=== PATIENT | female | born 1945 | race African-American/Black ===

== ENCOUNTER 2020-09-01 00:04 | Inpatient (IN) | payer MEDICARE, MEDICAID ==
[2020-08-31 23:18] VITALS: BP 133/72
[~2020-09-01] VITALS: Ht 170.2 cm; Wt 79.9 kg
[2020-09-01] VITALS: BP 133/72
[2020-09-01] MEDS ORDERED: REMDESIVIR PER PHARMACY 0 ML IV SCH ×2 (00:45→09:15)
[2020-09-01] MEDS: SODIUM CHLORIDE 0.9% 1,000 ML IV SCH ×2 (02:27→14:15)
[2020-09-01] MEDS: cefTRIAXone 1GM/50ML D5W 50 ML IV SCH ×3 (02:27→21:23)
[2020-09-01] MEDS: AZITHROMYCIN 500MG/ 250ML 250 ML IV SCH (03:30)
[2020-09-01] MEDS ORDERED: HYDROcodone-ACET 5/325MG TAB PO PRN (05:30)
[2020-09-01 08:00] VITALS: BP 139/66
[2020-09-01 08:02] LABS: Potassium 4.3 mmol/L (3.5-5.1)
[2020-09-01 08:03] LABS: Basophils # (auto) 0 10 ^3/uL (0-0.2); Eosinophils # (auto) 0 10 ^3/uL (0-0.8); Hemoglobin 10.9 g/dL (12.2-16.2); Lymphocytes # (auto) 0.8 10 ^3/uL (0.4-5.4); Lymphocytes % (auto) 9.6 % (10.0-50.0); Mean Corpuscular Hemoglobin 28.6 pg (28.0-32.0); Mean Corpuscular Hgb Conc. 33.1 g/dL (32.0-36.0); Mean Corpuscular Volume 86.5 fL (80.0-100.0); Monocytes # (auto) 0.8 10 ^3/uL (0-1.3); Monocytes % (auto) 9.9 % (0.0-12.0); Neutrophils # (auto) 6.6 10 ^3/uL (1.6-8.6); Neutrophils % (auto) 80.5 % (37.0-80.0); Nucleated Red Blood Cells % 0.2 %; Platelet Count (auto) 351 10^3/uL (140-450); Red Blood Cells 3.81 10^6/uL (4.0-5.20); Red Cell Distribution Width 14.8 % (11.8-14.3); White Blood Cell 8.2 10^3/uL (4.4-10.8)
[2020-09-01 08:18] LABS: BUN/Creatinine Ratio 21.1; Bilirubin, Total 0.6 mg/dL (0.2-1.0); Calcium 7.8 mg/dL (8.5-10.1)
[2020-09-01] MEDS ORDERED: ASPirin 325 MG TAB PO ONE (09:15)
[2020-09-01] MEDS: ZINC SULFATE 220mg CAP or TAB PO SCH (10:00)
[2020-09-01] MEDS: CHOLECALCIFEROL (VITD3) 2,000 UNIT CAP/TAB PO SCH (10:00)
[2020-09-01] MEDS: ASCORBIC ACID 500 MG TAB PO SCH (10:00)
[2020-09-01] MEDS: PANTOPRAZOLE 40 MG/10 ML VIAL INJ IV SCH (10:00)
[2020-09-01] MEDS: ENOXAPARIN SOD 80 MG/0.8ML SYRINGE SC SCH ×2 (10:44→21:23)
[2020-09-01 10:59] LABS: Basophils # (auto) 0 10 ^3/uL (0-0.2); Basophils % (auto) 0.2 % (0.0-2.0); Eosinophils # (auto) 0 10 ^3/uL (0-0.8); Hemoglobin 11.1 g/dL (12.2-16.2); Lymphocytes # (auto) 0.9 10 ^3/uL (0.4-5.4); Lymphocytes % (auto) 9.7 % (10.0-50.0); Mean Corpuscular Hemoglobin 28.1 pg (28.0-32.0); Mean Corpuscular Hgb Conc. 32.5 g/dL (32.0-36.0); Mean Corpuscular Volume 86.4 fL (80.0-100.0); Monocytes % (auto) 11.1 % (0.0-12.0); Nucleated Red Blood Cells % 0.4 %; Platelet Count (auto) 370 10^3/uL (140-450); Red Blood Cells 3.94 10^6/uL (4.0-5.20); Red Cell Distribution Width 14.6 % (11.8-14.3); White Blood Cell 8.8 10^3/uL (4.4-10.8)
[2020-09-01 11:24] LABS: Albumin 2.1 g/dL (3.4-5.0); Calcium 7.9 mg/dL (8.5-10.1); Potassium 4.2 mmol/L (3.5-5.1)
[2020-09-01 11:32] LABS: Bilirubin, Total 0.6 mg/dL (0.2-1.0); CRP High Sensitivity 7.43 mg/dL (< 0.3); Total Protein 7.4 g/dL (6.4-8.2)
[2020-09-01] MEDS ORDERED: REMDESIVIR 200 MG in NS 210ml LOADING DOSE ADULT IV ONE (15:00)
[2020-09-01 16:00] VITALS: BP 149/69
[2020-09-01] MEDS ORDERED: HYDR-531 PO (18:00)
[2020-09-01] MEDS ORDERED: FURO20TA3 PO (18:00)
[2020-09-01] MEDS ORDERED: OMEP-260 PO (18:00)
[2020-09-01] MEDS ORDERED: GLYB2.5T8 PO (18:00)
[2020-09-01] MEDS ORDERED: LEVO112T4 PO (18:00)
[2020-09-01] MEDS ORDERED: DOCU250C4 PO (18:00)
[2020-09-01] MEDS ORDERED: ASPI81CH74 PO (18:00)
[2020-09-01] MEDS ORDERED: ATOR20TA50 PO (18:00)
[2020-09-01] MEDS ORDERED: AMLO-489 PO (18:00)
[2020-09-01] MEDS ORDERED: OXYB5TAB61 PO (18:00)
[2020-09-01] MEDS ORDERED: POTA8TAB2 PO (18:00)
[2020-09-01] MEDS ORDERED: BUSP5TAB78 PO (18:00)
[2020-09-01] MEDS: ATORVASTATIN 20 MG TAB PO SCH ×2 (21:23→22:00)
[2020-09-02] VITALS: BP 160/78
[2020-09-02] MEDS: SODIUM CHLORIDE 0.9% 1,000 ML IV SCH (04:33)
[2020-09-02 07:58] VITALS: BP 160/78
[2020-09-02 08:45] LABS: Basophils # (auto) 0 10 ^3/uL (0-0.2); Eosinophils # (auto) 0 10 ^3/uL (0-0.8); Lymphocytes # (auto) 0.9 10 ^3/uL (0.4-5.4); Monocytes # (auto) 0.8 10 ^3/uL (0-1.3); Red Cell Distribution Width 14.5 % (11.8-14.3)
[2020-09-02 08:48] LABS: Basophils % (auto) 0.1 % (0.0-2.0); Hematocrit 35.4 % (36.0-46.0); Hemoglobin 11.6 g/dL (12.2-16.2); Lymphocytes % (auto) 9.9 % (10.0-50.0); Mean Corpuscular Hemoglobin 28.2 pg (28.0-32.0); Mean Corpuscular Hgb Conc. 32.9 g/dL (32.0-36.0); Mean Corpuscular Volume 85.8 fL (80.0-100.0); Monocytes % (auto) 8.8 % (0.0-12.0); Neutrophils # (auto) 7.3 10 ^3/uL (1.6-8.6); Neutrophils % (auto) 81.2 % (37.0-80.0); Nucleated Red Blood Cells % 0.3 %; Red Blood Cells 4.13 10^6/uL (4.0-5.20); White Blood Cell 8.9 10^3/uL (4.4-10.8)
[2020-09-02 09:03] LABS: Albumin 2.1 g/dL (3.4-5.0); Calcium 8.2 mg/dL (8.5-10.1); Magnesium 2.5 mg/dL (1.6-2.6); Potassium 3.6 mmol/L (3.5-5.1)
[2020-09-02 09:13] LABS: BUN/Creatinine Ratio 20.7; Bilirubin, Total 0.6 mg/dL (0.2-1.0); CRP High Sensitivity 4.52 mg/dL (< 0.3); Phosphorus 1.3 mg/dL (2.5-4.90); Total Protein 7.7 g/dL (6.4-8.2)
[2020-09-02 09:50] LABS: Platelet Count (auto) 454 10^3/uL (140-450)
[2020-09-02] MEDS: PANTOPRAZOLE 40 MG/10 ML VIAL INJ IV SCH (11:04)
[2020-09-02] MEDS: AZITHROMYCIN 500MG/ 250ML 250 ML IV SCH (11:05)
[2020-09-02] MEDS: cefTRIAXone 1GM/50ML D5W 50 ML IV SCH ×2 (11:05→22:07)
[2020-09-02] MEDS: DexAMETHasone 4 MG TAB PO SCH (11:06)
[2020-09-02] MEDS: ASPirin 81 mg TAB PO SCH (11:06)
[2020-09-02] MEDS: ZINC SULFATE 220mg CAP or TAB PO SCH (11:06)
[2020-09-02] MEDS: ASCORBIC ACID 500 MG TAB PO SCH (11:06)
[2020-09-02] MEDS: ENOXAPARIN SOD 80 MG/0.8ML SYRINGE SC SCH ×2 (11:07→22:08)
[2020-09-02] MEDS: CHOLECALCIFEROL (VITD3) 2,000 UNIT CAP/TAB PO SCH (11:07)
[2020-09-02] MEDS: REMDESIVIR 100mg 100 MG in SODIUM CHL 0.9% 230 ML IV SCH (15:56)
[2020-09-02 16:04] VITALS: BP 160/77
[2020-09-02] MEDS: ATORVASTATIN 20 MG TAB PO SCH ×2 (22:00→22:07)
[2020-09-03] VITALS: BP 164/89
[2020-09-03] MEDS: SODIUM CHLORIDE 0.9% 1,000 ML IV SCH ×3 (06:49→20:10)
[2020-09-03 08:00] VITALS: BP 155/82
[2020-09-03 08:33] LABS: Basophils # (auto) 0 10 ^3/uL (0-0.2); Basophils % (auto) 0.1 % (0.0-2.0); Eosinophils # (auto) 0 10 ^3/uL (0-0.8); Hematocrit 33.8 % (36.0-46.0); Hemoglobin 11.1 g/dL (12.2-16.2); Lymphocytes % (auto) 10.1 % (10.0-50.0); Mean Corpuscular Hemoglobin 28.4 pg (28.0-32.0); Mean Corpuscular Hgb Conc. 32.9 g/dL (32.0-36.0); Mean Corpuscular Volume 86.4 fL (80.0-100.0); Monocytes # (auto) 0.7 10 ^3/uL (0-1.3); Monocytes % (auto) 7.7 % (0.0-12.0); Neutrophils % (auto) 82.1 % (37.0-80.0); Nucleated Red Blood Cells % 0.2 %; Platelet Count (auto) 416 10^3/uL (140-450); Red Blood Cells 3.92 10^6/uL (4.0-5.20); Red Cell Distribution Width 14.5 % (11.8-14.3); White Blood Cell 9.7 10^3/uL (4.4-10.8)
[2020-09-03 08:59] LABS: Potassium 3.4 mmol/L (3.5-5.1)
[2020-09-03 09:17] LABS: Albumin 1.9 g/dL (3.4-5.0); BUN/Creatinine Ratio 15.9; Bilirubin, Total 0.7 mg/dL (0.2-1.0); CRP High Sensitivity 8.12 mg/dL (< 0.3); Calcium 7.9 mg/dL (8.5-10.1); Magnesium 2.5 mg/dL (1.6-2.6); Total Protein 7.3 g/dL (6.4-8.2)
[2020-09-03] MEDS: PANTOPRAZOLE 40 MG/10 ML VIAL INJ IV SCH (15:57)
[2020-09-03] MEDS: cefTRIAXone 1GM/50ML D5W 50 ML IV SCH ×2 (15:57→22:12)
[2020-09-03] MEDS: AZITHROMYCIN 500MG/ 250ML 250 ML IV SCH (15:58)
[2020-09-03] MEDS: ASPirin 81 mg TAB PO SCH (15:58)
[2020-09-03] MEDS: DexAMETHasone 4 MG TAB PO SCH (15:58)
[2020-09-03] MEDS: ZINC SULFATE 220mg CAP or TAB PO SCH (15:58)
[2020-09-03] MEDS: ASCORBIC ACID 500 MG TAB PO SCH (15:59)
[2020-09-03] MEDS: amLODIPine BESYLATE 5 MG TAB PO SCH (15:59)
[2020-09-03 16:00] VITALS: BP 147/84
[2020-09-03] MEDS: REMDESIVIR 100mg 100 MG in SODIUM CHL 0.9% 230 ML IV SCH (16:00)
[2020-09-03] MEDS: ENOXAPARIN SOD 80 MG/0.8ML SYRINGE SC SCH ×2 (16:00→22:13)
[2020-09-03] MEDS: CHOLECALCIFEROL (VITD3) 2,000 UNIT CAP/TAB PO SCH (16:00)
[2020-09-03] MEDS: ATORVASTATIN 20 MG TAB PO SCH ×2 (22:12→22:13)
[2020-09-04 00:22] VITALS: BP 155/84
[2020-09-04 06:43] LABS: Basophils # (auto) 0 10 ^3/uL (0-0.2); Basophils % (auto) 0.1 % (0.0-2.0); Eosinophils # (auto) 0 10 ^3/uL (0-0.8); Hematocrit 33.8 % (36.0-46.0); Lymphocytes # (auto) 0.8 10 ^3/uL (0.4-5.4); Lymphocytes % (auto) 8.2 % (10.0-50.0); Mean Corpuscular Hgb Conc. 32.6 g/dL (32.0-36.0); Mean Corpuscular Volume 85.9 fL (80.0-100.0); Monocytes # (auto) 0.7 10 ^3/uL (0-1.3); Monocytes % (auto) 7.1 % (0.0-12.0); Neutrophils # (auto) 8.4 10 ^3/uL (1.6-8.6); Neutrophils % (auto) 84.6 % (37.0-80.0); Nucleated Red Blood Cells % 0.3 %; Platelet Count (auto) 446 10^3/uL (140-450); Red Blood Cells 3.93 10^6/uL (4.0-5.20); Red Cell Distribution Width 14.3 % (11.8-14.3); White Blood Cell 9.9 10^3/uL (4.4-10.8)
[2020-09-04 07:02] LABS: Albumin 1.7 g/dL (3.4-5.0); Calcium 7.7 mg/dL (8.5-10.1); Magnesium 2.7 mg/dL (1.6-2.6); Potassium 3.8 mmol/L (3.5-5.1)
[2020-09-04 07:10] LABS: BUN/Creatinine Ratio 21.1; Bilirubin, Total 0.5 mg/dL (0.2-1.0); CRP High Sensitivity 8.48 mg/dL (< 0.3); Total Protein 7.3 g/dL (6.4-8.2)
[2020-09-04 08:00] VITALS: BP 154/81
[2020-09-04] MEDS: cefTRIAXone 1GM/50ML D5W 50 ML IV SCH ×2 (10:28→21:41)
[2020-09-04] MEDS: ASPirin 81 mg TAB PO SCH (10:28)
[2020-09-04] MEDS: amLODIPine BESYLATE 5 MG TAB PO SCH (10:29)
[2020-09-04] MEDS: ZINC SULFATE 220mg CAP or TAB PO SCH (10:29)
[2020-09-04] MEDS: ENOXAPARIN SOD 80 MG/0.8ML SYRINGE SC SCH ×2 (10:30→21:42)
[2020-09-04] MEDS: ASCORBIC ACID 500 MG TAB PO SCH (10:30)
[2020-09-04] MEDS: CHOLECALCIFEROL (VITD3) 2,000 UNIT CAP/TAB PO SCH (10:30)
[2020-09-04] MEDS: DexAMETHasone 4 MG TAB PO SCH (10:31)
[2020-09-04] MEDS: AZITHROMYCIN 500MG/ 250ML 250 ML IV SCH (11:36)
[2020-09-04 15:05] LABS: CRP High Sensitivity 6.94 mg/dL (< 0.3)
[2020-09-04] MEDS: PANTOPRAZOLE 40 MG TAB PO SCH (15:45)
[2020-09-04] MEDS: REMDESIVIR 100mg 100 MG in SODIUM CHL 0.9% 230 ML IV SCH (15:46)
[2020-09-04 16:00] VITALS: BP 154/79
[2020-09-04] MEDS: ATORVASTATIN 20 MG TAB PO SCH ×2 (21:41)
[2020-09-05] VITALS: BP_SYST 133; BP_SYST 153; BP_DIAS 82
[2020-09-05 06:42] LABS: Basophils # (auto) 0 10 ^3/uL (0-0.2); Basophils % (auto) 0.1 % (0.0-2.0); Eosinophils # (auto) 0 10 ^3/uL (0-0.8); Hematocrit 34.1 % (36.0-46.0); Hemoglobin 11.1 g/dL (12.2-16.2); Lymphocytes # (auto) 0.8 10 ^3/uL (0.4-5.4); Lymphocytes % (auto) 6.6 % (10.0-50.0); Mean Corpuscular Hemoglobin 28.1 pg (28.0-32.0); Mean Corpuscular Hgb Conc. 32.4 g/dL (32.0-36.0); Mean Corpuscular Volume 86.5 fL (80.0-100.0); Monocytes # (auto) 0.9 10 ^3/uL (0-1.3); Monocytes % (auto) 7.4 % (0.0-12.0); Neutrophils # (auto) 10.4 10 ^3/uL (1.6-8.6); Neutrophils % (auto) 85.9 % (37.0-80.0); Nucleated Red Blood Cells % 0.2 %; Platelet Count (auto) 439 10^3/uL (140-450); Red Blood Cells 3.94 10^6/uL (4.0-5.20); Red Cell Distribution Width 14.6 % (11.8-14.3); White Blood Cell 12.1 10^3/uL (4.4-10.8)
[2020-09-05 07:15] LABS: Albumin 1.8 g/dL (3.4-5.0); Calcium 8.1 mg/dL (8.5-10.1); Magnesium 2.7 mg/dL (1.6-2.6)
[2020-09-05 07:22] LABS: Bilirubin, Total 0.3 mg/dL (0.2-1.0); Total Protein 7.3 g/dL (6.4-8.2)
[2020-09-05 07:25] LABS: BUN/Creatinine Ratio 24.8; CRP High Sensitivity 4.57 mg/dL (< 0.3)
[2020-09-05 07:52] VITALS: BP 154/77
[2020-09-05] MEDS: cefTRIAXone 1GM/50ML D5W 50 ML IV SCH ×2 (11:13→21:17)
[2020-09-05] MEDS: ZINC SULFATE 220mg CAP or TAB PO SCH (11:14)
[2020-09-05] MEDS: ASPirin 81 mg TAB PO SCH (11:14)
[2020-09-05] MEDS: ASCORBIC ACID 500 MG TAB PO SCH (11:15)
[2020-09-05] MEDS: PANTOPRAZOLE 40 MG TAB PO SCH (11:15)
[2020-09-05] MEDS: amLODIPine BESYLATE 5 MG TAB PO SCH (11:15)
[2020-09-05] MEDS: DexAMETHasone 4 MG TAB PO SCH (11:16)
[2020-09-05] MEDS: CHOLECALCIFEROL (VITD3) 2,000 UNIT CAP/TAB PO SCH (11:16)
[2020-09-05] MEDS: ENOXAPARIN SOD 80 MG/0.8ML SYRINGE SC SCH ×2 (11:16→21:18)
[2020-09-05] MEDS: AZITHROMYCIN 500MG/ 250ML 250 ML IV SCH (14:02)
[2020-09-05 16:00] VITALS: BP 116/81
[2020-09-05] MEDS ORDERED: DEXTROSE (50%) 50ML SYRG IV PRN (16:15)
[2020-09-05] MEDS: REMDESIVIR 100mg 100 MG in SODIUM CHL 0.9% 230 ML IV SCH (17:41)
[2020-09-05] MEDS: InsuLIN REG 1unit/0.01ml Soln (100units/ml) SC SCH ×2 (17:42→20:30)
[2020-09-05] MEDS: ACCU-CHEK COMFORT CURVE STRIP VI SCH ×2 (17:42→21:18)
[2020-09-05] MEDS: Glucerna Carbsteady SHAKE Vanilla 8oz PO SCH (17:43)
[2020-09-05 17:50] VITALS: BP 116/81
[2020-09-05] MEDS: ATORVASTATIN 20 MG TAB PO SCH (21:18)
[2020-09-06] VITALS: BP 148/75
[2020-09-06] MEDS: ATORVASTATIN 20 MG TAB PO SCH ×2 (03:40→22:30)
[2020-09-06 06:10] LABS: Basophils # (auto) 0 10 ^3/uL (0-0.2); Basophils % (auto) 0.1 % (0.0-2.0); Eosinophils # (auto) 0 10 ^3/uL (0-0.8); Hematocrit 34.8 % (36.0-46.0); Hemoglobin 11.4 g/dL (12.2-16.2); Lymphocytes % (auto) 7.8 % (10.0-50.0); Mean Corpuscular Hemoglobin 28.5 pg (28.0-32.0); Mean Corpuscular Hgb Conc. 32.9 g/dL (32.0-36.0); Mean Corpuscular Volume 86.6 fL (80.0-100.0); Monocytes # (auto) 0.8 10 ^3/uL (0-1.3); Monocytes % (auto) 6.2 % (0.0-12.0); Neutrophils # (auto) 10.9 10 ^3/uL (1.6-8.6); Neutrophils % (auto) 85.9 % (37.0-80.0); Nucleated Red Blood Cells % 0.1 %; Platelet Count (auto) 438 10^3/uL (140-450); Red Blood Cells 4.01 10^6/uL (4.0-5.20); Red Cell Distribution Width 14.6 % (11.8-14.3); White Blood Cell 12.7 10^3/uL (4.4-10.8)
[2020-09-06] MEDS: InsuLIN REG 1unit/0.01ml Soln (100units/ml) SC SCH ×4 (06:16→22:39)
[2020-09-06 06:33] LABS: Albumin 1.9 g/dL (3.4-5.0); BUN/Creatinine Ratio 24.1; Calcium 8.5 mg/dL (8.5-10.1); Potassium 3.8 mmol/L (3.5-5.1)
[2020-09-06 06:35] LABS: Bilirubin, Total 0.3 mg/dL (0.2-1.0); Total Protein 7.2 g/dL (6.4-8.2)
[2020-09-06] MEDS: ACCU-CHEK COMFORT CURVE STRIP VI SCH ×4 (07:27→22:00)
[2020-09-06 08:00] VITALS: BP 160/83
[2020-09-06] MEDS: Glucerna Carbsteady SHAKE Vanilla 8oz PO SCH ×3 (08:00→18:30)
[2020-09-06 08:25] LABS: Folate (Folic Acid) 16.07 ng/mL (5.38-24)
[2020-09-06] MEDS: cefTRIAXone 1GM/50ML D5W 50 ML IV SCH ×2 (10:50→22:30)
[2020-09-06] MEDS: CHOLECALCIFEROL (VITD3) 2,000 UNIT CAP/TAB PO SCH (10:50)
[2020-09-06] MEDS: amLODIPine BESYLATE 5 MG TAB PO SCH (10:50)
[2020-09-06] MEDS: ASCORBIC ACID 500 MG TAB PO SCH (10:50)
[2020-09-06] MEDS: ENOXAPARIN SOD 80 MG/0.8ML SYRINGE SC SCH ×2 (10:50→22:29)
[2020-09-06] MEDS: PANTOPRAZOLE 40 MG TAB PO SCH (10:50)
[2020-09-06] MEDS: ZINC SULFATE 220mg CAP or TAB PO SCH (10:50)
[2020-09-06] MEDS: DexAMETHasone 4 MG TAB PO SCH (10:51)
[2020-09-06] MEDS: ASPirin 81 mg TAB PO SCH (10:51)
[2020-09-06] MEDS: AZITHROMYCIN 500MG/ 250ML 250 ML IV SCH (11:30)
[2020-09-06 16:00] VITALS: BP 148/75
[2020-09-06 17:22] VITALS: BP 155/86
[2020-09-06 17:37] VITALS: BP 136/71
[2020-09-07] VITALS: BP 134/99
[2020-09-07] MEDS ORDERED: SODIUM CHLORIDE 0.9% 1,000 ML IV SCH (04:15)
[2020-09-07] MEDS ORDERED: SODIUM CHLORIDE 0.9% 500 ML IV ONE (04:15)
[2020-09-07 05:45] LABS: Basophils # (auto) 0 10 ^3/uL (0-0.2); Eosinophils # (auto) 0 10 ^3/uL (0-0.8); Eosinophils % (auto) 0.2 % (0.0-7.0); Hematocrit 34.2 % (36.0-46.0); Hemoglobin 11.1 g/dL (12.2-16.2); Lymphocytes # (auto) 1.2 10 ^3/uL (0.4-5.4); Mean Corpuscular Hemoglobin 27.9 pg (28.0-32.0); Mean Corpuscular Hgb Conc. 32.5 g/dL (32.0-36.0); Mean Corpuscular Volume 85.8 fL (80.0-100.0); Monocytes # (auto) 0.8 10 ^3/uL (0-1.3); Monocytes % (auto) 5.7 % (0.0-12.0); Neutrophils # (auto) 11.2 10 ^3/uL (1.6-8.6); Neutrophils % (auto) 85.1 % (37.0-80.0); Nucleated Red Blood Cells % 0.1 %; Platelet Count (auto) 420 10^3/uL (140-450); Red Blood Cells 3.98 10^6/uL (4.0-5.20); Red Cell Distribution Width 14.4 % (11.8-14.3); White Blood Cell 13.2 10^3/uL (4.4-10.8)
[2020-09-07 06:04] LABS: Potassium 3.8 mmol/L (3.5-5.1)
[2020-09-07 06:25] LABS: Albumin 1.9 g/dL (3.4-5.0); BUN/Creatinine Ratio 21.5; Bilirubin, Total 0.5 mg/dL (0.2-1.0); CRP High Sensitivity 3.03 mg/dL (< 0.3); Magnesium 2.3 mg/dL (1.6-2.6); Total Protein 7.5 g/dL (6.4-8.2)
[2020-09-07] MEDS: ACCU-CHEK COMFORT CURVE STRIP VI SCH ×4 (06:29→22:46)
[2020-09-07] MEDS: InsuLIN REG 1unit/0.01ml Soln (100units/ml) SC SCH ×4 (06:30→23:28)
[2020-09-07 07:21] LABS: Urine Bacteria NONE SEEN /hpf (None Seen); Urine Blood Negative /uL (Negative); Urine Budding Yeast MANY /hpf (None Seen); Urine WBC 20 /hpf (0 - 5)
[2020-09-07 08:00] VITALS: BP 131/84
[2020-09-07] MEDS: Glucerna Carbsteady SHAKE Vanilla 8oz PO SCH ×3 (08:09→17:50)
[2020-09-07] MEDS: ZINC SULFATE 220mg CAP or TAB PO SCH (10:47)
[2020-09-07] MEDS: cefTRIAXone 1GM/50ML D5W 50 ML IV SCH ×2 (10:47→22:38)
[2020-09-07] MEDS: DexAMETHasone 4 MG TAB PO SCH (10:47)
[2020-09-07] MEDS: PANTOPRAZOLE 40 MG TAB PO SCH (10:48)
[2020-09-07] MEDS: ASCORBIC ACID 500 MG TAB PO SCH (10:48)
[2020-09-07] MEDS: amLODIPine BESYLATE 5 MG TAB PO SCH (10:48)
[2020-09-07] MEDS: CHOLECALCIFEROL (VITD3) 2,000 UNIT CAP/TAB PO SCH (10:49)
[2020-09-07] MEDS: AZITHROMYCIN 500MG/ 250ML 250 ML IV SCH (11:00)
[2020-09-07] MEDS: ENOXAPARIN SOD 80 MG/0.8ML SYRINGE SC SCH ×2 (11:30→22:38)
[2020-09-07 16:00] VITALS: BP 151/87
[2020-09-07 17:04] LABS: INR 1.18 (0.9-1.15)
[2020-09-07] MEDS: ATORVASTATIN 20 MG TAB PO SCH (22:38)
[2020-09-08] VITALS: BP 148/82
[2020-09-08 00:18] LABS: INR 1.18 (0.9-1.15); Partial Thromboplastin Time 34.6 sec (23.0-31.2)
[2020-09-08] MEDS: InsuLIN REG 1unit/0.01ml Soln (100units/ml) SC SCH ×4 (06:26→21:13)
[2020-09-08] MEDS: ACCU-CHEK COMFORT CURVE STRIP VI SCH ×4 (06:26→21:07)
[2020-09-08] MEDS ORDERED: LIDOCAINE 2%HCL (LOCAL ANESTH.) INJ 20ML MDV ONE (07:23)
[2020-09-08] MEDS ORDERED: HEPARIN IN NS 1000Units/500mL 0 ML ONE (07:23)
[2020-09-08] MEDS ORDERED: IODIXANOL 320MG/ML 100ML BTL IV ONE (07:23)
[2020-09-08 07:32] LABS: Basophils # (auto) 0 10 ^3/uL (0-0.2); Basophils % (auto) 0.2 % (0.0-2.0); Eosinophils # (auto) 0 10 ^3/uL (0-0.8); Eosinophils % (auto) 0.2 % (0.0-7.0); Hematocrit 35.6 % (36.0-46.0); Hemoglobin 11.6 g/dL (12.2-16.2); Lymphocytes # (auto) 1.2 10 ^3/uL (0.4-5.4); Lymphocytes % (auto) 8.7 % (10.0-50.0); Mean Corpuscular Hgb Conc. 32.8 g/dL (32.0-36.0); Mean Corpuscular Volume 85.4 fL (80.0-100.0); Monocytes # (auto) 0.7 10 ^3/uL (0-1.3); Monocytes % (auto) 5.3 % (0.0-12.0); Neutrophils # (auto) 11.7 10 ^3/uL (1.6-8.6); Neutrophils % (auto) 85.6 % (37.0-80.0); Platelet Count (auto) 417 10^3/uL (140-450); Red Blood Cells 4.17 10^6/uL (4.0-5.20); Red Cell Distribution Width 14.4 % (11.8-14.3); White Blood Cell 13.7 10^3/uL (4.4-10.8)
[2020-09-08 07:51] LABS: Potassium 3.7 mmol/L (3.5-5.1)
[2020-09-08 08:00] VITALS: BP 148/68
[2020-09-08] MEDS: Glucerna Carbsteady SHAKE Vanilla 8oz PO SCH ×3 (08:00→18:19)
[2020-09-08 08:03] LABS: Albumin 1.9 g/dL (3.4-5.0); BUN/Creatinine Ratio 21.8; Bilirubin, Total 0.6 mg/dL (0.2-1.0); CRP High Sensitivity 5.89 mg/dL (< 0.3); Calcium 8.5 mg/dL (8.5-10.1); Magnesium 2.5 mg/dL (1.6-2.6); Total Protein 7.8 g/dL (6.4-8.2)
[2020-09-08] MEDS ORDERED: NITROGLYCERIN 0.4 MG SL TAB SL PRN (10:30)
[2020-09-08] MEDS ORDERED: MORPHINE SULF INJ 2 MG/ML SYRINGE 1ML IV PRN (10:30)
[2020-09-08] MEDS: ASCORBIC ACID 500 MG TAB PO SCH (10:38)
[2020-09-08] MEDS: cefTRIAXone 1GM/50ML D5W 50 ML IV SCH ×2 (10:38→21:28)
[2020-09-08] MEDS: PANTOPRAZOLE 40 MG TAB PO SCH (10:38)
[2020-09-08] MEDS: ZINC SULFATE 220mg CAP or TAB PO SCH (10:38)
[2020-09-08] MEDS: DexAMETHasone 4 MG TAB PO SCH (10:39)
[2020-09-08] MEDS: CHOLECALCIFEROL (VITD3) 2,000 UNIT CAP/TAB PO SCH (10:39)
[2020-09-08] MEDS: amLODIPine BESYLATE 5 MG TAB PO SCH (10:40)
[2020-09-08] MEDS: AZITHROMYCIN 500MG/ 250ML 250 ML IV SCH (11:00)
[2020-09-08] MEDS: ENOXAPARIN SOD 80 MG/0.8ML SYRINGE SC SCH ×2 (11:24→21:07)
[2020-09-08] MEDS: SODIUM CHLOR 0.9% PF (SALINE LOCK) 10ML VIAL/SYR IV SCH ×2 (14:00→21:29)
[2020-09-08] MEDS ORDERED: FUROSEMIDE 40 MG/4 ML VIAL IV ONE (16:00)
[2020-09-08 16:11] VITALS: BP 138/83
[2020-09-08] MEDS: ATORVASTATIN 20 MG TAB PO SCH (21:28)
[2020-09-09] VITALS: BP 134/71
[2020-09-09 02:11] VITALS: BP 134/71
[2020-09-09 02:15] VITALS: BP 134/71
[2020-09-09] MEDS: SODIUM CHLOR 0.9% PF (SALINE LOCK) 10ML VIAL/SYR IV SCH ×3 (05:14→20:57)
[2020-09-09 06:03] LABS: Basophils # (auto) 0 10 ^3/uL (0-0.2); Basophils % (auto) 0.1 % (0.0-2.0); Eosinophils # (auto) 0 10 ^3/uL (0-0.8); Hematocrit 36.4 % (36.0-46.0); Hemoglobin 11.6 g/dL (12.2-16.2); Lymphocytes # (auto) 0.9 10 ^3/uL (0.4-5.4); Lymphocytes % (auto) 6.9 % (10.0-50.0); Mean Corpuscular Hemoglobin 27.4 pg (28.0-32.0); Mean Corpuscular Hgb Conc. 31.8 g/dL (32.0-36.0); Mean Corpuscular Volume 86.2 fL (80.0-100.0); Monocytes # (auto) 0.6 10 ^3/uL (0-1.3); Monocytes % (auto) 4.9 % (0.0-12.0); Neutrophils # (auto) 11.7 10 ^3/uL (1.6-8.6); Neutrophils % (auto) 88.1 % (37.0-80.0); Nucleated Red Blood Cells % 0.1 %; Platelet Count (auto) 389 10^3/uL (140-450); Red Blood Cells 4.23 10^6/uL (4.0-5.20); Red Cell Distribution Width 14.5 % (11.8-14.3); White Blood Cell 13.2 10^3/uL (4.4-10.8)
[2020-09-09] MEDS: ACCU-CHEK COMFORT CURVE STRIP VI SCH ×4 (06:18→20:51)
[2020-09-09] MEDS: InsuLIN REG 1unit/0.01ml Soln (100units/ml) SC SCH ×4 (06:18→21:09)
[2020-09-09 06:33] LABS: Albumin 1.8 g/dL (3.4-5.0); Calcium 8.2 mg/dL (8.5-10.1); Magnesium 2.6 mg/dL (1.6-2.6); Potassium 4.2 mmol/L (3.5-5.1)
[2020-09-09 06:45] LABS: BUN/Creatinine Ratio 23.7; Bilirubin, Total 0.4 mg/dL (0.2-1.0); CRP High Sensitivity 7.69 mg/dL (< 0.3); Total Protein 7.5 g/dL (6.4-8.2)
[2020-09-09 08:00] VITALS: BP 139/77
[2020-09-09] MEDS: Glucerna Carbsteady SHAKE Vanilla 8oz PO SCH ×3 (08:00→18:00)
[2020-09-09] MEDS: cefTRIAXone 1GM/50ML D5W 50 ML IV SCH ×2 (10:53→20:57)
[2020-09-09] MEDS: ENOXAPARIN SOD 80 MG/0.8ML SYRINGE SC SCH ×2 (10:54→20:57)
[2020-09-09] MEDS: amLODIPine BESYLATE 5 MG TAB PO SCH (11:09)
[2020-09-09] MEDS: ZINC SULFATE 220mg CAP or TAB PO SCH (11:09)
[2020-09-09] MEDS: DexAMETHasone 4 MG TAB PO SCH (11:09)
[2020-09-09] MEDS: PANTOPRAZOLE 40 MG TAB PO SCH (11:09)
[2020-09-09] MEDS: CHOLECALCIFEROL (VITD3) 2,000 UNIT CAP/TAB PO SCH (11:10)
[2020-09-09] MEDS: ASCORBIC ACID 500 MG TAB PO SCH (11:10)
[2020-09-09] MEDS: AZITHROMYCIN 500MG/ 250ML 250 ML IV SCH (13:00)
[2020-09-09 16:00] VITALS: BP 108/64
[2020-09-09] MEDS: MORPHINE SULF INJ 2 MG/ML SYRINGE 1ML IV PRN (17:37)
[2020-09-09] MEDS: ATORVASTATIN 20 MG TAB PO SCH (20:57)
[2020-09-10] VITALS: BP 149/67
[2020-09-10] MEDS: SODIUM CHLOR 0.9% PF (SALINE LOCK) 10ML VIAL/SYR IV SCH ×3 (06:40→22:06)
[2020-09-10] MEDS: ACCU-CHEK COMFORT CURVE STRIP VI SCH ×4 (06:42→23:49)
[2020-09-10] MEDS: InsuLIN REG 1unit/0.01ml Soln (100units/ml) SC SCH ×3 (06:42→23:51)
[2020-09-10 07:51] VITALS: BP 126/70
[2020-09-10] MEDS: Glucerna Carbsteady SHAKE Vanilla 8oz PO SCH ×3 (08:00→18:03)
[2020-09-10 08:15] VITALS: BP 126/70
[2020-09-10] MEDS: DexAMETHasone 4 MG TAB PO SCH (10:00)
[2020-09-10] MEDS: ZINC SULFATE 220mg CAP or TAB PO SCH (10:00)
[2020-09-10] MEDS: ASCORBIC ACID 500 MG TAB PO SCH (10:00)
[2020-09-10] MEDS: PANTOPRAZOLE 40 MG TAB PO SCH (10:00)
[2020-09-10] MEDS: CHOLECALCIFEROL (VITD3) 2,000 UNIT CAP/TAB PO SCH (10:00)
[2020-09-10] MEDS: cefTRIAXone 1GM/50ML D5W 50 ML IV SCH ×2 (10:29→22:06)
[2020-09-10] MEDS: AZITHROMYCIN 500MG/ 250ML 250 ML IV SCH (10:29)
[2020-09-10] MEDS: ENOXAPARIN SOD 80 MG/0.8ML SYRINGE SC SCH ×2 (10:31→22:07)
[2020-09-10] MEDS ORDERED: TPN PER PHARMACY 0 ML IV SCH (12:00)
[2020-09-10 13:14] LABS: Potassium 4.1 mmol/L (3.5-5.1)
[2020-09-10 13:19] LABS: Albumin 1.8 g/dL (3.4-5.0); BUN/Creatinine Ratio 29.7; Bilirubin, Total 0.6 mg/dL (0.2-1.0); Calcium 8.1 mg/dL (8.5-10.1)
[2020-09-10 13:21] LABS: Phosphorus 3.5 mg/dL (2.5-4.90); Pre Albumin 8.3 mg/dL (20.0-40.0)
[2020-09-10 13:40] VITALS: BP 126/70
[2020-09-10 15:34] VITALS: BP 129/73
[2020-09-10] MEDS ORDERED: DEXTROSE (50%) 50ML SYRG IV SCH (18:00)
[2020-09-10] MEDS: amLODIPine BESYLATE 5 MG TAB PO SCH (18:12)
[2020-09-10] MEDS ORDERED: PPN PER PHARMACY IV NR ×6 (20:00)
[2020-09-10] MEDS: ATORVASTATIN 20 MG TAB PO SCH (22:07)
[2020-09-11] VITALS: BP 141/71
[2020-09-11] MEDS: MORPHINE SULF INJ 2 MG/ML SYRINGE 1ML IV PRN ×2 (01:19→23:47)
[2020-09-11] MEDS: ACCU-CHEK COMFORT CURVE STRIP VI SCH ×4 (05:28→23:47)
[2020-09-11] MEDS: InsuLIN REG 1unit/0.01ml Soln (100units/ml) SC SCH ×4 (05:28→23:47)
[2020-09-11] MEDS: SODIUM CHLOR 0.9% PF (SALINE LOCK) 10ML VIAL/SYR IV SCH ×3 (05:28→22:08)
[2020-09-11 05:47] LABS: Basophils # (auto) 0 10 ^3/uL (0-0.2); Basophils % (auto) 0.2 % (0.0-2.0); Eosinophils # (auto) 0.1 10 ^3/uL (0-0.8); Eosinophils % (auto) 0.7 % (0.0-7.0); Hematocrit 32.4 % (36.0-46.0); Hemoglobin 10.5 g/dL (12.2-16.2); Lymphocytes # (auto) 0.7 10 ^3/uL (0.4-5.4); Lymphocytes % (auto) 6.4 % (10.0-50.0); Mean Corpuscular Hgb Conc. 32.5 g/dL (32.0-36.0); Monocytes # (auto) 0.9 10 ^3/uL (0-1.3); Monocytes % (auto) 7.9 % (0.0-12.0); Neutrophils # (auto) 9.8 10 ^3/uL (1.6-8.6); Neutrophils % (auto) 84.8 % (37.0-80.0); Platelet Count (auto) 300 10^3/uL (140-450); Red Blood Cells 3.77 10^6/uL (4.0-5.20); Red Cell Distribution Width 14.3 % (11.8-14.3); White Blood Cell 11.6 10^3/uL (4.4-10.8)
[2020-09-11 06:06] LABS: Potassium 3.6 mmol/L (3.5-5.1)
[2020-09-11 06:31] LABS: Albumin 1.6 g/dL (3.4-5.0); BUN/Creatinine Ratio 34.6; Bilirubin, Total 0.4 mg/dL (0.2-1.0); CRP High Sensitivity 10.7 mg/dL (< 0.3); Calcium 8.3 mg/dL (8.5-10.1); Magnesium 2.8 mg/dL (1.6-2.6); Phosphorus 2.2 mg/dL (2.5-4.90); Total Protein 7.5 g/dL (6.4-8.2)
[2020-09-11 08:00] VITALS: BP 126/61
[2020-09-11] MEDS: Glucerna Carbsteady SHAKE Vanilla 8oz PO SCH ×3 (08:00→17:25)
[2020-09-11] MEDS ORDERED: POTASSIUM PHOSP 26.4MEQ(18MMOL) IN NS 100 ML IV ONE (08:30)
[2020-09-11] MEDS: ZINC SULFATE 220mg CAP or TAB PO SCH (10:00)
[2020-09-11] MEDS: DexAMETHasone 4 MG TAB PO SCH (10:00)
[2020-09-11] MEDS: PANTOPRAZOLE 40 MG TAB PO SCH (10:00)
[2020-09-11] MEDS: CHOLECALCIFEROL (VITD3) 2,000 UNIT CAP/TAB PO SCH (10:00)
[2020-09-11] MEDS: amLODIPine BESYLATE 5 MG TAB PO SCH (10:00)
[2020-09-11] MEDS: ASCORBIC ACID 500 MG TAB PO SCH (10:00)
[2020-09-11] MEDS: AZITHROMYCIN 500MG/ 250ML 250 ML IV SCH (10:27)
[2020-09-11] MEDS: ENOXAPARIN SOD 80 MG/0.8ML SYRINGE SC SCH ×2 (10:27→22:08)
[2020-09-11] MEDS: cefTRIAXone 1GM/50ML D5W 50 ML IV SCH ×2 (10:28→22:08)
[2020-09-11 16:00] VITALS: BP 130/92
[2020-09-11] MEDS ORDERED: POTASSIUM PHOSPHATE 26.4 MEQ in SODIUM CHL 0.9% 100 ML IV ONE (16:00)
[2020-09-11] MEDS ORDERED: PPN PER PHARMACY IV NR ×8 (20:00)
[2020-09-11] MEDS: ATORVASTATIN 20 MG TAB PO SCH (22:08)
[2020-09-12] VITALS: BP 158/79
[2020-09-12] MEDS: SODIUM CHLOR 0.9% PF (SALINE LOCK) 10ML VIAL/SYR IV SCH ×3 (05:45→21:25)
[2020-09-12] MEDS: ACCU-CHEK COMFORT CURVE STRIP VI SCH ×4 (05:45→23:44)
[2020-09-12] MEDS: InsuLIN REG 1unit/0.01ml Soln (100units/ml) SC SCH ×4 (05:46→23:42)
[2020-09-12 07:27] LABS: Basophils # (auto) 0 10 ^3/uL (0-0.2); Basophils % (auto) 0.4 % (0.0-2.0); Eosinophils # (auto) 0.1 10 ^3/uL (0-0.8); Eosinophils % (auto) 1.1 % (0.0-7.0); Hematocrit 31.8 % (36.0-46.0); Hemoglobin 10.5 g/dL (12.2-16.2); Lymphocytes # (auto) 0.9 10 ^3/uL (0.4-5.4); Lymphocytes % (auto) 8.6 % (10.0-50.0); Mean Corpuscular Hemoglobin 28.8 pg (28.0-32.0); Mean Corpuscular Hgb Conc. 33.1 g/dL (32.0-36.0); Mean Corpuscular Volume 87.1 fL (80.0-100.0); Monocytes % (auto) 9.4 % (0.0-12.0); Neutrophils # (auto) 8.8 10 ^3/uL (1.6-8.6); Neutrophils % (auto) 80.5 % (37.0-80.0); Nucleated Red Blood Cells % 0.1 %; Platelet Count (auto) 259 10^3/uL (140-450); Red Blood Cells 3.65 10^6/uL (4.0-5.20); Red Cell Distribution Width 14.3 % (11.8-14.3); White Blood Cell 10.9 10^3/uL (4.4-10.8)
[2020-09-12 07:32] VITALS: BP 137/75
[2020-09-12 07:44] LABS: Potassium 3.7 mmol/L (3.5-5.1)
[2020-09-12 07:58] LABS: Albumin 1.6 g/dL (3.4-5.0); BUN/Creatinine Ratio 27.9; Bilirubin, Total 0.4 mg/dL (0.2-1.0); Calcium 8.2 mg/dL (8.5-10.1); Magnesium 2.8 mg/dL (1.6-2.6); Phosphorus 2.2 mg/dL (2.5-4.90); Total Protein 7.5 g/dL (6.4-8.2)
[2020-09-12] MEDS: Glucerna Carbsteady SHAKE Vanilla 8oz PO SCH ×3 (08:00→17:09)
[2020-09-12] MEDS: ZINC SULFATE 220mg CAP or TAB PO SCH (10:00)
[2020-09-12] MEDS: CHOLECALCIFEROL (VITD3) 2,000 UNIT CAP/TAB PO SCH (10:00)
[2020-09-12] MEDS: PANTOPRAZOLE 40 MG TAB PO SCH (10:00)
[2020-09-12] MEDS: DexAMETHasone 4 MG TAB PO SCH (10:00)
[2020-09-12] MEDS: amLODIPine BESYLATE 5 MG TAB PO SCH (10:00)
[2020-09-12] MEDS: ASCORBIC ACID 500 MG TAB PO SCH (10:00)
[2020-09-12] MEDS ORDERED: SODIUM CHL 0.9% IV ONE (10:00)
[2020-09-12] MEDS: ENOXAPARIN SOD 80 MG/0.8ML SYRINGE SC SCH ×2 (10:00→21:25)
[2020-09-12] MEDS ORDERED: POTASSIUM PHOSPHATE IV ONE (10:00)
[2020-09-12] MEDS: AZITHROMYCIN 500MG/ 250ML 250 ML IV SCH (10:53)
[2020-09-12] MEDS: cefTRIAXone 1GM/50ML D5W 50 ML IV SCH ×2 (10:54→21:25)
[2020-09-12] MEDS: MORPHINE SULF INJ 2 MG/ML SYRINGE 1ML IV PRN ×2 (12:05→17:37)
[2020-09-12 16:00] VITALS: BP 153/92
[2020-09-12 18:00] VITALS: BP 153/92
[2020-09-12] MEDS ORDERED: PPN PER PHARMACY IV NR ×7 (20:00)
[2020-09-12] MEDS: ATORVASTATIN 20 MG TAB PO SCH (21:32)
[2020-09-12 22:00] VITALS: BP_DIAS 9
[2020-09-13] VITALS: BP 138/69
[2020-09-13] MEDS: MORPHINE SULF INJ 2 MG/ML SYRINGE 1ML IV PRN ×2 (04:42→12:06)
[2020-09-13] MEDS: ACCU-CHEK COMFORT CURVE STRIP VI SCH ×4 (05:59→23:52)
[2020-09-13] MEDS: SODIUM CHLOR 0.9% PF (SALINE LOCK) 10ML VIAL/SYR IV SCH ×3 (06:08→21:26)
[2020-09-13] MEDS: InsuLIN REG 1unit/0.01ml Soln (100units/ml) SC SCH ×3 (06:08→17:28)
[2020-09-13 07:07] LABS: Basophils # (auto) 0.1 10 ^3/uL (0-0.2); Basophils % (auto) 0.5 % (0.0-2.0); Eosinophils # (auto) 0.1 10 ^3/uL (0-0.8); Eosinophils % (auto) 0.9 % (0.0-7.0); Hematocrit 32.9 % (36.0-46.0); Hemoglobin 10.4 g/dL (12.2-16.2); Lymphocytes # (auto) 0.7 10 ^3/uL (0.4-5.4); Lymphocytes % (auto) 6.3 % (10.0-50.0); Mean Corpuscular Hemoglobin 27.5 pg (28.0-32.0); Mean Corpuscular Hgb Conc. 31.7 g/dL (32.0-36.0); Mean Corpuscular Volume 86.8 fL (80.0-100.0); Monocytes # (auto) 1.1 10 ^3/uL (0-1.3); Monocytes % (auto) 9.5 % (0.0-12.0); Neutrophils # (auto) 9.5 10 ^3/uL (1.6-8.6); Neutrophils % (auto) 82.8 % (37.0-80.0); Nucleated Red Blood Cells % 0.1 %; Platelet Count (auto) 252 10^3/uL (140-450); Red Blood Cells 3.79 10^6/uL (4.0-5.20); Red Cell Distribution Width 14.7 % (11.8-14.3); White Blood Cell 11.4 10^3/uL (4.4-10.8)
[2020-09-13 07:24] LABS: Potassium 4.1 mmol/L (3.5-5.1)
[2020-09-13 07:44] LABS: Albumin 1.5 g/dL (3.4-5.0); BUN/Creatinine Ratio 28.9; Bilirubin, Total 0.5 mg/dL (0.2-1.0); CRP High Sensitivity 9.4 mg/dL (< 0.3); Calcium 8.5 mg/dL (8.5-10.1); Magnesium 2.4 mg/dL (1.6-2.6); Phosphorus 2.2 mg/dL (2.5-4.90); Total Protein 7.7 g/dL (6.4-8.2)
[2020-09-13 08:00] VITALS: BP 160/82
[2020-09-13] MEDS: Glucerna Carbsteady SHAKE Vanilla 8oz PO SCH ×3 (08:00→17:28)
[2020-09-13] MEDS: cefTRIAXone 1GM/50ML D5W 50 ML IV SCH ×2 (09:49→21:25)
[2020-09-13] MEDS: AZITHROMYCIN 500MG/ 250ML 250 ML IV SCH (09:49)
[2020-09-13] MEDS: ENOXAPARIN SOD 80 MG/0.8ML SYRINGE SC SCH ×2 (09:50→21:26)
[2020-09-13] MEDS: DexAMETHasone 4 MG TAB PO SCH (09:50)
[2020-09-13] MEDS: amLODIPine BESYLATE 5 MG TAB PO SCH (09:50)
[2020-09-13] MEDS: ZINC SULFATE 220mg CAP or TAB PO SCH (09:50)
[2020-09-13] MEDS: CHOLECALCIFEROL (VITD3) 2,000 UNIT CAP/TAB PO SCH (10:00)
[2020-09-13] MEDS: PANTOPRAZOLE 40 MG TAB PO SCH (10:00)
[2020-09-13] MEDS: ASCORBIC ACID 500 MG TAB PO SCH (10:00)
[2020-09-13] MEDS ORDERED: hydrALAZINE HCL 20 MG/ML VL IV PRN (11:30)
[2020-09-13] MEDS ORDERED: SODIUM PHOSP 20MEQ(15MMOL) IN NS 100 ML IV ONE (13:00)
[2020-09-13] MEDS: LORazepam 2MG/ML-1ML VIAL IV PRN (13:55)
[2020-09-13 16:00] VITALS: BP 146/81
[2020-09-13 18:00] VITALS: BP 119/65
[2020-09-13] MEDS ORDERED: [UNRECOGNIZED DRUG - OTHER] IV NR ×10 (20:00)
[2020-09-13] MEDS ORDERED: POTASSIUM ACETATE IV NR ×10 (20:00)
[2020-09-13] MEDS ORDERED: SODIUM PHOSPHATES IV NR ×10 (20:00)
[2020-09-13] MEDS ORDERED: PPN PER PHARMACY IV NR ×10 (20:00)
[2020-09-13] MEDS ORDERED: FAT EMULSION IV NR ×10 (20:00)
[2020-09-13] MEDS: ATORVASTATIN 20 MG TAB PO SCH (21:26)
[2020-09-13 22:10] VITALS: BP 119/65
[2020-09-14] VITALS (7 sets, daily range): BP systolic 118–155; BP diastolic 59–75
[2020-09-14] MEDS: InsuLIN REG 1unit/0.01ml Soln (100units/ml) SC SCH ×4 (00:06→18:22)
[2020-09-14] MEDS: MORPHINE SULF INJ 2 MG/ML SYRINGE 1ML IV PRN ×3 (03:00→21:08)
[2020-09-14] MEDS: SODIUM CHLOR 0.9% PF (SALINE LOCK) 10ML VIAL/SYR IV SCH ×3 (06:11→22:07)
[2020-09-14] MEDS: ACCU-CHEK COMFORT CURVE STRIP VI SCH ×3 (06:11→18:21)
[2020-09-14 06:22] LABS: Potassium 3.8 mmol/L (3.5-5.1)
[2020-09-14 06:28] LABS: Albumin 1.4 g/dL (3.4-5.0); BUN/Creatinine Ratio 31.5; Bilirubin, Total 0.4 mg/dL (0.2-1.0); Calcium 8.6 mg/dL (8.5-10.1); Magnesium 2.6 mg/dL (1.6-2.6); Phosphorus 3.2 mg/dL (2.5-4.90); Total Protein 7.5 g/dL (6.4-8.2)
[2020-09-14] MEDS: Glucerna Carbsteady SHAKE Vanilla 8oz PO SCH ×2 (08:00→14:28)
[2020-09-14] MEDS: amLODIPine BESYLATE 5 MG TAB PO SCH (09:52)
[2020-09-14] MEDS: DexAMETHasone 4 MG TAB PO SCH (09:52)
[2020-09-14] MEDS: ZINC SULFATE 220mg CAP or TAB PO SCH (09:52)
[2020-09-14] MEDS: cefTRIAXone 1GM/50ML D5W 50 ML IV SCH ×2 (09:52→22:07)
[2020-09-14] MEDS: AZITHROMYCIN 500MG/ 250ML 250 ML IV SCH (09:52)
[2020-09-14] MEDS: PANTOPRAZOLE 40 MG TAB PO SCH (09:53)
[2020-09-14] MEDS: ASCORBIC ACID 500 MG TAB PO SCH (09:53)
[2020-09-14] MEDS: CHOLECALCIFEROL (VITD3) 2,000 UNIT CAP/TAB PO SCH (09:53)
[2020-09-14] MEDS: ENOXAPARIN SOD 80 MG/0.8ML SYRINGE SC SCH ×2 (10:07→22:07)
[2020-09-14] MEDS ORDERED: PPN PER PHARMACY IV NR ×8 (20:00)
[2020-09-14] MEDS: ATORVASTATIN 20 MG TAB PO SCH (22:00)
[2020-09-15] VITALS: BP 132/75
[2020-09-15] MEDS: ACCU-CHEK COMFORT CURVE STRIP VI SCH ×5 (00:02→23:10)
[2020-09-15] MEDS: InsuLIN REG 1unit/0.01ml Soln (100units/ml) SC SCH ×5 (00:04→23:58)
[2020-09-15] MEDS: MORPHINE SULF INJ 2 MG/ML SYRINGE 1ML IV PRN ×3 (04:16→15:16)
[2020-09-15 05:40] LABS: Albumin 1.2 g/dL (3.4-5.0); Calcium 7.6 mg/dL (8.5-10.1); Magnesium 2.3 mg/dL (1.6-2.6); Potassium 3.5 mmol/L (3.5-5.1)
[2020-09-15 05:41] LABS: BUN/Creatinine Ratio 36.7
[2020-09-15 05:45] LABS: Bilirubin, Total 0.4 mg/dL (0.2-1.0); Total Protein 6.4 g/dL (6.4-8.2)
[2020-09-15 05:50] LABS: Phosphorus 2.6 mg/dL (2.5-4.90)
[2020-09-15] MEDS: SODIUM CHLOR 0.9% PF (SALINE LOCK) 10ML VIAL/SYR IV SCH ×3 (06:01→21:24)
[2020-09-15] MEDS: amLODIPine BESYLATE 5 MG TAB PO SCH (07:24)
[2020-09-15] MEDS: Glucerna Carbsteady SHAKE Vanilla 8oz PO SCH ×3 (07:24→15:20)
[2020-09-15] MEDS: ZINC SULFATE 220mg CAP or TAB PO SCH (07:24)
[2020-09-15] MEDS: ASCORBIC ACID 500 MG TAB PO SCH (07:25)
[2020-09-15] MEDS: PANTOPRAZOLE 40 MG TAB PO SCH (07:25)
[2020-09-15] MEDS: CHOLECALCIFEROL (VITD3) 2,000 UNIT CAP/TAB PO SCH (07:25)
[2020-09-15 08:00] VITALS: BP 153/90
[2020-09-15] MEDS: cefTRIAXone 1GM/50ML D5W 50 ML IV SCH ×2 (09:12→21:30)
[2020-09-15] MEDS: ENOXAPARIN SOD 80 MG/0.8ML SYRINGE SC SCH ×2 (09:12→21:25)
[2020-09-15] MEDS: AZITHROMYCIN 500MG/ 250ML 250 ML IV SCH (09:12)
[2020-09-15] MEDS: DexAMETHasone 4 MG TAB PO SCH (09:12)
[2020-09-15] MEDS ORDERED: POTASSIUM PHOSP 22MEQ(15MMOLE) in NS 100 ML IV ONE (11:45)
[2020-09-15 16:00] VITALS: BP 123/72
[2020-09-15] MEDS ORDERED: TPN PER PHARMACY IV NR ×8 (20:00)
[2020-09-15] MEDS: ATORVASTATIN 20 MG TAB PO SCH (21:24)
[2020-09-16] VITALS: BP 140/79
[2020-09-16] MEDS: LORazepam 2MG/ML-1ML VIAL IV PRN ×2 (02:55→13:36)
[2020-09-16] MEDS: SODIUM CHLOR 0.9% PF (SALINE LOCK) 10ML VIAL/SYR IV SCH ×3 (06:04→22:15)
[2020-09-16] MEDS: ACCU-CHEK COMFORT CURVE STRIP VI SCH ×3 (06:04→17:58)
[2020-09-16] MEDS: InsuLIN REG 1unit/0.01ml Soln (100units/ml) SC SCH ×3 (06:08→17:58)
[2020-09-16 07:10] LABS: Albumin 1.3 g/dL (3.4-5.0); Magnesium 2.4 mg/dL (1.6-2.6); Potassium 4.3 mmol/L (3.5-5.1)
[2020-09-16 07:15] LABS: Bilirubin, Total 0.6 mg/dL (0.2-1.0); Calcium 8.2 mg/dL (8.5-10.1); Phosphorus 3.2 mg/dL (2.5-4.90); Total Protein 7.4 g/dL (6.4-8.2)
[2020-09-16 07:57] VITALS: BP 140/75
[2020-09-16] MEDS: Glucerna Carbsteady SHAKE Vanilla 8oz PO SCH ×3 (08:00→17:57)
[2020-09-16] MEDS: ZINC SULFATE 220mg CAP or TAB PO SCH (10:00)
[2020-09-16] MEDS: CHOLECALCIFEROL (VITD3) 2,000 UNIT CAP/TAB PO SCH (10:00)
[2020-09-16] MEDS: amLODIPine BESYLATE 5 MG TAB PO SCH (10:00)
[2020-09-16] MEDS: ASCORBIC ACID 500 MG TAB PO SCH (10:00)
[2020-09-16] MEDS: DexAMETHasone 4 MG TAB PO SCH (10:00)
[2020-09-16] MEDS: PANTOPRAZOLE 40 MG TAB PO SCH (10:00)
[2020-09-16] MEDS: ENOXAPARIN SOD 80 MG/0.8ML SYRINGE SC SCH ×2 (11:33→22:32)
[2020-09-16] MEDS: MEROPENEM 1GM IVPB 100 ML IV SCH ×2 (13:36→22:32)
[2020-09-16 16:08] VITALS: BP 130/64
[2020-09-16] MEDS ORDERED: PPN PER PHARMACY IV NR ×6 (20:00)
[2020-09-16] MEDS: ATORVASTATIN 20 MG TAB PO SCH (22:00)
[2020-09-17] VITALS: BP 147/83
[2020-09-17] MEDS: ACCU-CHEK COMFORT CURVE STRIP VI SCH ×4 (00:26→16:57)
[2020-09-17] MEDS: InsuLIN REG 1unit/0.01ml Soln (100units/ml) SC SCH ×5 (00:30→23:53)
[2020-09-17] MEDS: SODIUM CHLOR 0.9% PF (SALINE LOCK) 10ML VIAL/SYR IV SCH ×3 (06:17→21:50)
[2020-09-17] MEDS: MEROPENEM 1GM IVPB 100 ML IV SCH ×3 (06:17→21:50)
[2020-09-17 07:53] LABS: Potassium 3.2 mmol/L (3.5-5.1)
[2020-09-17 08:00] VITALS: BP 123/76
[2020-09-17] MEDS: Glucerna Carbsteady SHAKE Vanilla 8oz PO SCH ×3 (08:00→17:47)
[2020-09-17 08:08] LABS: BUN/Creatinine Ratio 45.8; Bilirubin, Total 0.4 mg/dL (0.2-1.0); Magnesium 1.7 mg/dL (1.6-2.6); Phosphorus 5.1 mg/dL (2.5-4.90); Total Protein 5.5 g/dL (6.4-8.2)
[2020-09-17 08:19] LABS: Albumin 0.9 g/dL (3.4-5.0); Calcium 5.8 mg/dL (8.5-10.1)
[2020-09-17] MEDS: DexAMETHasone 4 MG TAB PO SCH (09:21)
[2020-09-17] MEDS: amLODIPine BESYLATE 5 MG TAB PO SCH (09:21)
[2020-09-17] MEDS: ZINC SULFATE 220mg CAP or TAB PO SCH (09:21)
[2020-09-17] MEDS: ASCORBIC ACID 500 MG TAB PO SCH (09:23)
[2020-09-17] MEDS: CHOLECALCIFEROL (VITD3) 2,000 UNIT CAP/TAB PO SCH (09:23)
[2020-09-17] MEDS: PANTOPRAZOLE 40 MG TAB PO SCH (09:23)
[2020-09-17] MEDS: ENOXAPARIN SOD 80 MG/0.8ML SYRINGE SC SCH ×2 (09:23→21:51)
[2020-09-17] MEDS ORDERED: CALCIUM GLUC 4.65meq/50ml D5AE 50 ML IV ONE (10:15)
[2020-09-17] MEDS ORDERED: ALBUMIN 25% 100 ML IV SCH (10:15)
[2020-09-17] MEDS: POTASSIUM CHL 20MEQ/100ML 100 ML IV SCH ×2 (10:50→13:40)
[2020-09-17] MEDS: LORazepam 2MG/ML-1ML VIAL IV PRN (15:33)
[2020-09-17 18:53] VITALS: BP 163/99
[2020-09-17] MEDS: MORPHINE SULF INJ 2 MG/ML SYRINGE 1ML IV PRN (19:34)
[2020-09-17] MEDS ORDERED: PPN PER PHARMACY IV NR ×9 (20:00)
[2020-09-17] MEDS: ALBUMIN 25% 100 ML IV SCH (21:06)
[2020-09-17] MEDS: ATORVASTATIN 20 MG TAB PO SCH (21:51)
[2020-09-18] VITALS: BP 147/68
[2020-09-18] MEDS: ACCU-CHEK COMFORT CURVE STRIP VI SCH ×4 (00:01→18:00)
[2020-09-18] MEDS: ALBUMIN 25% 100 ML IV SCH ×2 (03:32→12:00)
[2020-09-18] MEDS: SODIUM CHLOR 0.9% PF (SALINE LOCK) 10ML VIAL/SYR IV SCH ×3 (05:37→21:38)
[2020-09-18] MEDS: MEROPENEM 1GM IVPB 100 ML IV SCH ×3 (05:37→21:38)
[2020-09-18] MEDS: InsuLIN REG 1unit/0.01ml Soln (100units/ml) SC SCH ×3 (05:39→18:00)
[2020-09-18 06:24] LABS: Potassium 5.1 mmol/L (3.5-5.1)
[2020-09-18 06:36] LABS: Albumin 2.4 g/dL (3.4-5.0); BUN/Creatinine Ratio 31.9; Bilirubin, Total 0.7 mg/dL (0.2-1.0); Calcium 8.4 mg/dL (8.5-10.1); Magnesium 2.5 mg/dL (1.6-2.6); Phosphorus 1.9 mg/dL (2.5-4.90); Pre Albumin 8.9 mg/dL (20.0-40.0); Total Protein 7.4 g/dL (6.4-8.2)
[2020-09-18 08:00] VITALS: BP 148/95
[2020-09-18] MEDS: Glucerna Carbsteady SHAKE Vanilla 8oz PO SCH ×3 (08:00→18:00)
[2020-09-18] MEDS: PANTOPRAZOLE 40 MG TAB PO SCH (10:00)
[2020-09-18] MEDS: ZINC SULFATE 220mg CAP or TAB PO SCH (10:00)
[2020-09-18] MEDS: CHOLECALCIFEROL (VITD3) 2,000 UNIT CAP/TAB PO SCH (10:00)
[2020-09-18] MEDS: DexAMETHasone 4 MG TAB PO SCH (10:00)
[2020-09-18] MEDS: ASCORBIC ACID 500 MG TAB PO SCH (10:00)
[2020-09-18] MEDS: amLODIPine BESYLATE 5 MG TAB PO SCH (10:00)
[2020-09-18] MEDS: ENOXAPARIN SOD 80 MG/0.8ML SYRINGE SC SCH ×2 (10:00→21:38)
[2020-09-18] MEDS: MORPHINE SULF INJ 2 MG/ML SYRINGE 1ML IV PRN ×2 (10:23→19:09)
[2020-09-18] MEDS ORDERED: SODIUM PHOSPH 24MEQ(18MMOL) IN NS 100 ML IV ONE (12:30)
[2020-09-18 15:45] VITALS: BP 157/85
[2020-09-18] MEDS ORDERED: PPN PER PHARMACY IV NR ×9 (20:00)
[2020-09-18] MEDS ORDERED: KETOROLAC TROMETH 30 MG/ML 1ML VIAL IV PRN (20:30)
[2020-09-18] MEDS: ATORVASTATIN 20 MG TAB PO SCH (21:38)
[2020-09-19] MEDS: ACCU-CHEK COMFORT CURVE STRIP VI SCH ×4 (00:06→18:00)
[2020-09-19] MEDS: InsuLIN REG 1unit/0.01ml Soln (100units/ml) SC SCH ×4 (00:07→18:00)
[2020-09-19 00:08] VITALS: BP 162/87
[2020-09-19] MEDS: LORazepam 2MG/ML-1ML VIAL IV PRN ×3 (00:14→19:54)
[2020-09-19] MEDS: MEROPENEM 1GM IVPB 100 ML IV SCH ×3 (05:32→21:28)
[2020-09-19] MEDS: SODIUM CHLOR 0.9% PF (SALINE LOCK) 10ML VIAL/SYR IV SCH ×3 (05:32→22:00)
[2020-09-19 06:29] LABS: Potassium 4.4 mmol/L (3.5-5.1)
[2020-09-19 06:48] LABS: Albumin 2.2 g/dL (3.4-5.0); BUN/Creatinine Ratio 26.7; Calcium 8.9 mg/dL (8.5-10.1); Magnesium 2.4 mg/dL (1.6-2.6)
[2020-09-19 06:56] LABS: Bilirubin, Total 0.8 mg/dL (0.2-1.0); Phosphorus 2.3 mg/dL (2.5-4.90); Total Protein 7.6 g/dL (6.4-8.2)
[2020-09-19 07:57] VITALS: BP 155/83
[2020-09-19] MEDS: Glucerna Carbsteady SHAKE Vanilla 8oz PO SCH ×3 (08:00→18:00)
[2020-09-19] MEDS: CHOLECALCIFEROL (VITD3) 2,000 UNIT CAP/TAB PO SCH (10:00)
[2020-09-19] MEDS: ASCORBIC ACID 500 MG TAB PO SCH (10:00)
[2020-09-19] MEDS: ZINC SULFATE 220mg CAP or TAB PO SCH (10:00)
[2020-09-19] MEDS: PANTOPRAZOLE 40 MG TAB PO SCH (10:00)
[2020-09-19] MEDS: DexAMETHasone 4 MG TAB PO SCH (10:00)
[2020-09-19] MEDS: amLODIPine BESYLATE 5 MG TAB PO SCH (10:00)
[2020-09-19] MEDS: ENOXAPARIN SOD 80 MG/0.8ML SYRINGE SC SCH ×2 (10:27→21:28)
[2020-09-19] MEDS ORDERED: SODIUM PHOSPHATES 20 MEQ in SODIUM CHL 0.9% 100 ML IV ONE (11:30)
[2020-09-19 15:40] VITALS: BP 143/81
[2020-09-19 18:00] VITALS: BP 143/81
[2020-09-19] MEDS ORDERED: PPN PER PHARMACY IV NR ×10 (20:00)
[2020-09-19] MEDS: ATORVASTATIN 20 MG TAB PO SCH (22:00)
[2020-09-20] VITALS: BP 119/65
[2020-09-20] MEDS: MORPHINE SULF INJ 2 MG/ML SYRINGE 1ML IV PRN ×2 (00:31→03:47)
[2020-09-20] MEDS: MEROPENEM 1GM IVPB 100 ML IV SCH ×3 (05:36→23:46)
[2020-09-20] MEDS: ACCU-CHEK COMFORT CURVE STRIP VI SCH ×5 (05:36→23:46)
[2020-09-20] MEDS: SODIUM CHLOR 0.9% PF (SALINE LOCK) 10ML VIAL/SYR IV SCH ×3 (05:36→22:00)
[2020-09-20] MEDS: InsuLIN REG 1unit/0.01ml Soln (100units/ml) SC SCH ×5 (05:37→23:51)
[2020-09-20] MEDS: Glucerna Carbsteady SHAKE Vanilla 8oz PO SCH ×3 (07:50→17:48)
[2020-09-20 08:00] VITALS: BP 91/48
[2020-09-20 09:32] LABS: Basophils # (auto) 0 10 ^3/uL (0-0.2); Basophils % (auto) 0.2 % (0.0-2.0); Eosinophils # (auto) 0 10 ^3/uL (0-0.8); Eosinophils % (auto) 0.1 % (0.0-7.0); Hematocrit 29.8 % (36.0-46.0); Hemoglobin 9.5 g/dL (12.2-16.2); Lymphocytes # (auto) 1.4 10 ^3/uL (0.4-5.4); Lymphocytes % (auto) 7.5 % (10.0-50.0); Mean Corpuscular Hemoglobin 27.6 pg (28.0-32.0); Mean Corpuscular Volume 86.3 fL (80.0-100.0); Monocytes # (auto) 1.8 10 ^3/uL (0-1.3); Monocytes % (auto) 9.6 % (0.0-12.0); Neutrophils # (auto) 15.1 10 ^3/uL (1.6-8.6); Neutrophils % (auto) 82.6 % (37.0-80.0); Nucleated Red Blood Cells % 0.1 %; Platelet Count (auto) 266 10^3/uL (140-450); Red Blood Cells 3.45 10^6/uL (4.0-5.20); Red Cell Distribution Width 14.6 % (11.8-14.3); White Blood Cell 18.3 10^3/uL (4.4-10.8)
[2020-09-20 09:43] LABS: Albumin 1.6 g/dL (3.4-5.0); Calcium 7.8 mg/dL (8.5-10.1); Magnesium 2.6 mg/dL (1.6-2.6); Potassium 4.5 mmol/L (3.5-5.1)
[2020-09-20 09:46] LABS: BUN/Creatinine Ratio 25.7; Bilirubin, Total 0.8 mg/dL (0.2-1.0); Phosphorus 5.5 mg/dL (2.5-4.90)
[2020-09-20] MEDS: DexAMETHasone 4 MG TAB PO SCH (10:00)
[2020-09-20] MEDS: CHOLECALCIFEROL (VITD3) 2,000 UNIT CAP/TAB PO SCH (10:00)
[2020-09-20] MEDS: amLODIPine BESYLATE 5 MG TAB PO SCH (10:00)
[2020-09-20] MEDS: ASCORBIC ACID 500 MG TAB PO SCH (10:00)
[2020-09-20] MEDS: PANTOPRAZOLE 40 MG TAB PO SCH (10:00)
[2020-09-20] MEDS: ZINC SULFATE 220mg CAP or TAB PO SCH (10:00)
[2020-09-20] MEDS: ENOXAPARIN SOD 80 MG/0.8ML SYRINGE SC SCH ×2 (10:11→22:35)
[2020-09-20 16:00] VITALS: BP 98/54
[2020-09-20] MEDS ORDERED: SODIUM ACETATE IV NR ×8 (20:00)
[2020-09-20] MEDS ORDERED: SODIUM CHLORIDE IV NR ×8 (20:00)
[2020-09-20] MEDS ORDERED: POTASSIUM CHLORIDE IV NR ×8 (20:00)
[2020-09-20] MEDS ORDERED: [UNRECOGNIZED DRUG - OTHER] IV NR ×8 (20:00)
[2020-09-20] MEDS: ATORVASTATIN 20 MG TAB PO SCH (22:00)
[2020-09-21] VITALS: BP 101/62
[2020-09-21] MEDS: InsuLIN REG 1unit/0.01ml Soln (100units/ml) SC SCH ×3 (06:00→18:14)
[2020-09-21] MEDS: SODIUM CHLOR 0.9% PF (SALINE LOCK) 10ML VIAL/SYR IV SCH ×3 (06:00→21:45)
[2020-09-21] MEDS: ACCU-CHEK COMFORT CURVE STRIP VI SCH ×3 (06:00→18:12)
[2020-09-21] MEDS: MEROPENEM 1GM IVPB 100 ML IV SCH ×3 (06:53→21:45)
[2020-09-21 07:41] LABS: Albumin 1.6 g/dL (3.4-5.0); Calcium 7.9 mg/dL (8.5-10.1); Magnesium 2.9 mg/dL (1.6-2.6); Potassium 3.7 mmol/L (3.5-5.1)
[2020-09-21 07:45] LABS: BUN/Creatinine Ratio 38.3; Bilirubin, Total 0.6 mg/dL (0.2-1.0); Total Protein 7.5 g/dL (6.4-8.2)
[2020-09-21 08:00] VITALS: BP 142/72
[2020-09-21] MEDS: Glucerna Carbsteady SHAKE Vanilla 8oz PO SCH ×3 (08:00→17:06)
[2020-09-21] MEDS: DexAMETHasone 4 MG TAB PO SCH (10:00)
[2020-09-21] MEDS: amLODIPine BESYLATE 5 MG TAB PO SCH (10:00)
[2020-09-21] MEDS: PANTOPRAZOLE 40 MG TAB PO SCH (10:00)
[2020-09-21] MEDS: ZINC SULFATE 220mg CAP or TAB PO SCH (10:00)
[2020-09-21] MEDS: CHOLECALCIFEROL (VITD3) 2,000 UNIT CAP/TAB PO SCH (10:00)
[2020-09-21] MEDS: ASCORBIC ACID 500 MG TAB PO SCH (10:00)
[2020-09-21] MEDS: ENOXAPARIN SOD 80 MG/0.8ML SYRINGE SC SCH ×2 (10:43→21:45)
[2020-09-21] MEDS: LORazepam 2MG/ML-1ML VIAL IV PRN (10:44)
[2020-09-21] MEDS: FLUCONAZOLE 200MG/100ML 100 ML IV SCH (11:41)
[2020-09-21 16:00] VITALS: BP 136/59
[2020-09-21] MEDS ORDERED: SODIUM CHLORIDE IV NR ×8 (20:00)
[2020-09-21] MEDS ORDERED: SODIUM ACETATE IV NR ×8 (20:00)
[2020-09-21] MEDS ORDERED: [UNRECOGNIZED DRUG - OTHER] IV NR ×8 (20:00)
[2020-09-21] MEDS ORDERED: POTASSIUM CHLORIDE IV NR ×8 (20:00)
[2020-09-21] MEDS: ATORVASTATIN 20 MG TAB PO SCH (21:46)
[2020-09-22] VITALS: BP 166/87
[2020-09-22] MEDS: LORazepam 2MG/ML-1ML VIAL IV PRN (00:42)
[2020-09-22] MEDS: InsuLIN REG 1unit/0.01ml Soln (100units/ml) SC SCH ×4 (06:00→18:00)
[2020-09-22] MEDS: SODIUM CHLOR 0.9% PF (SALINE LOCK) 10ML VIAL/SYR IV SCH ×3 (06:08→21:41)
[2020-09-22] MEDS: ACCU-CHEK COMFORT CURVE STRIP VI SCH ×4 (06:08→18:00)
[2020-09-22] MEDS: MEROPENEM 1GM IVPB 100 ML IV SCH ×2 (06:08→18:00)
[2020-09-22 06:27] LABS: Potassium 3.7 mmol/L (3.5-5.1)
[2020-09-22 06:34] LABS: Albumin 1.7 g/dL (3.4-5.0); BUN/Creatinine Ratio 40.7; Bilirubin, Total 0.7 mg/dL (0.2-1.0); Calcium 7.7 mg/dL (8.5-10.1); Magnesium 2.6 mg/dL (1.6-2.6); Phosphorus 2.1 mg/dL (2.5-4.90); Total Protein 7.9 g/dL (6.4-8.2)
[2020-09-22 08:00] VITALS: BP 155/78
[2020-09-22] MEDS: Glucerna Carbsteady SHAKE Vanilla 8oz PO SCH ×3 (08:00→18:00)
[2020-09-22] MEDS: amLODIPine BESYLATE 5 MG TAB PO SCH (09:49)
[2020-09-22] MEDS: PANTOPRAZOLE 40 MG TAB PO SCH (09:49)
[2020-09-22] MEDS: DexAMETHasone 4 MG TAB PO SCH (09:49)
[2020-09-22] MEDS: ASCORBIC ACID 500 MG TAB PO SCH (09:49)
[2020-09-22] MEDS: ZINC SULFATE 220mg CAP or TAB PO SCH (09:49)
[2020-09-22] MEDS: ENOXAPARIN SOD 80 MG/0.8ML SYRINGE SC SCH ×2 (09:50→21:40)
[2020-09-22] MEDS: CHOLECALCIFEROL (VITD3) 2,000 UNIT CAP/TAB PO SCH (09:50)
[2020-09-22] MEDS: FLUCONAZOLE 200MG/100ML 100 ML IV SCH (11:00)
[2020-09-22] MEDS ORDERED: SODIUM PHOSP 20MEQ(15MMOL) IN NS 100 ML IV ONE (13:00)
[2020-09-22 16:00] VITALS: BP 125/81
[2020-09-22] MEDS ORDERED: POTASSIUM CHLORIDE IV NR ×9 (20:00)
[2020-09-22] MEDS ORDERED: [UNRECOGNIZED DRUG - OTHER] IV NR ×9 (20:00)
[2020-09-22] MEDS ORDERED: SODIUM CHLORIDE IV NR ×9 (20:00)
[2020-09-22] MEDS ORDERED: SODIUM ACETATE IV NR ×9 (20:00)
[2020-09-22] MEDS: ATORVASTATIN 20 MG TAB PO SCH (21:35)
[2020-09-22] MEDS: MORPHINE SULF INJ 2 MG/ML SYRINGE 1ML IV PRN (21:40)
[2020-09-23] VITALS: BP 139/71
[2020-09-23] MEDS: ACCU-CHEK COMFORT CURVE STRIP VI SCH ×4 (00:17→17:36)
[2020-09-23] MEDS: InsuLIN REG 1unit/0.01ml Soln (100units/ml) SC SCH ×4 (00:17→18:00)
[2020-09-23] MEDS: MEROPENEM 1GM IVPB 100 ML IV SCH ×3 (01:46→17:36)
[2020-09-23] MEDS: SODIUM CHLOR 0.9% PF (SALINE LOCK) 10ML VIAL/SYR IV SCH ×3 (05:36→22:10)
[2020-09-23 06:23] LABS: Calcium 7.7 mg/dL (8.5-10.1); Potassium 3.8 mmol/L (3.5-5.1)
[2020-09-23 06:30] LABS: Albumin 1.5 g/dL (3.4-5.0); BUN/Creatinine Ratio 32.1; Bilirubin, Total 0.7 mg/dL (0.2-1.0); Magnesium 2.2 mg/dL (1.6-2.6); Phosphorus 2.4 mg/dL (2.5-4.90); Total Protein 7.5 g/dL (6.4-8.2)
[2020-09-23 07:38] VITALS: BP 152/92
[2020-09-23] MEDS: Glucerna Carbsteady SHAKE Vanilla 8oz PO SCH ×3 (08:00→15:50)
[2020-09-23] MEDS ORDERED: ACETAMINOPHEN 650 MG RECT SUPP PR PRN (08:00)
[2020-09-23] MEDS: ZINC SULFATE 220mg CAP or TAB PO SCH (10:00)
[2020-09-23] MEDS: CHOLECALCIFEROL (VITD3) 2,000 UNIT CAP/TAB PO SCH (10:00)
[2020-09-23] MEDS: amLODIPine BESYLATE 5 MG TAB PO SCH (10:00)
[2020-09-23] MEDS: ASCORBIC ACID 500 MG TAB PO SCH (10:00)
[2020-09-23] MEDS: PANTOPRAZOLE 40 MG TAB PO SCH (10:00)
[2020-09-23] MEDS: DexAMETHasone 4 MG TAB PO SCH (10:00)
[2020-09-23] MEDS: ENOXAPARIN SOD 80 MG/0.8ML SYRINGE SC SCH ×2 (10:20→22:11)
[2020-09-23] MEDS: FLUCONAZOLE 200MG/100ML 100 ML IV SCH (11:00)
[2020-09-23] MEDS ORDERED: SODIUM PHOSPHATES 20 MEQ in SODIUM CHL 0.9% 100 ML IV ONE (12:00)
[2020-09-23] MEDS: MORPHINE SULF INJ 2 MG/ML SYRINGE 1ML IV PRN (14:19)
[2020-09-23 16:00] VITALS: BP 138/92
[2020-09-23] MEDS ORDERED: SODIUM PHOSPHATES IV NR ×11 (20:00)
[2020-09-23] MEDS ORDERED: SODIUM ACETATE IV NR ×11 (20:00)
[2020-09-23] MEDS ORDERED: [UNRECOGNIZED DRUG - OTHER] IV NR ×11 (20:00)
[2020-09-23] MEDS ORDERED: SODIUM CHLORIDE IV NR ×11 (20:00)
[2020-09-23] MEDS: ATORVASTATIN 20 MG TAB PO SCH (22:00)
[2020-09-24 00:12] VITALS: BP 153/73
[2020-09-24] MEDS: ACCU-CHEK COMFORT CURVE STRIP VI SCH ×4 (00:27→18:08)
[2020-09-24] MEDS: InsuLIN REG 1unit/0.01ml Soln (100units/ml) SC SCH ×4 (00:41→18:09)
[2020-09-24] MEDS: MEROPENEM 1GM IVPB 100 ML IV SCH ×3 (01:57→18:10)
[2020-09-24] MEDS: SODIUM CHLOR 0.9% PF (SALINE LOCK) 10ML VIAL/SYR IV SCH ×2 (06:10→14:03)
[2020-09-24 06:31] LABS: Basophils # (auto) 0 10 ^3/uL (0-0.2); Basophils % (auto) 0.3 % (0.0-2.0); Eosinophils # (auto) 0.2 10 ^3/uL (0-0.8); Eosinophils % (auto) 1.1 % (0.0-7.0); Hematocrit 32.1 % (36.0-46.0); Lymphocytes # (auto) 1.3 10 ^3/uL (0.4-5.4); Lymphocytes % (auto) 8.1 % (10.0-50.0); Mean Corpuscular Hemoglobin 27.2 pg (28.0-32.0); Mean Corpuscular Hgb Conc. 31.2 g/dL (32.0-36.0); Monocytes # (auto) 1.1 10 ^3/uL (0-1.3); Monocytes % (auto) 6.9 % (0.0-12.0); Neutrophils # (auto) 13.5 10 ^3/uL (1.6-8.6); Neutrophils % (auto) 83.6 % (37.0-80.0); Nucleated Red Blood Cells % 1.3 %; Platelet Count (auto) 400 10^3/uL (140-450); Red Blood Cells 3.69 10^6/uL (4.0-5.20); Red Cell Distribution Width 15.3 % (11.8-14.3); White Blood Cell 16.2 10^3/uL (4.4-10.8)
[2020-09-24 06:46] LABS: Albumin 1.3 g/dL (3.4-5.0); Calcium 7.5 mg/dL (8.5-10.1); Magnesium 2.2 mg/dL (1.6-2.6)
[2020-09-24 06:51] LABS: BUN/Creatinine Ratio 31.5; Bilirubin, Total 0.8 mg/dL (0.2-1.0); Phosphorus 3.6 mg/dL (2.5-4.90); Total Protein 7.2 g/dL (6.4-8.2)
[2020-09-24] MEDS: Glucerna Carbsteady SHAKE Vanilla 8oz PO SCH ×3 (07:53→18:00)
[2020-09-24 08:00] VITALS: BP 86/49
[2020-09-24] MEDS: ENOXAPARIN SOD 80 MG/0.8ML SYRINGE SC SCH (09:44)
[2020-09-24] MEDS: amLODIPine BESYLATE 5 MG TAB PO SCH (09:52)
[2020-09-24] MEDS: DexAMETHasone 4 MG TAB PO SCH (09:52)
[2020-09-24] MEDS: ZINC SULFATE 220mg CAP or TAB PO SCH (09:52)
[2020-09-24] MEDS: ASCORBIC ACID 500 MG TAB PO SCH (09:53)
[2020-09-24] MEDS: PANTOPRAZOLE 40 MG TAB PO SCH (09:53)
[2020-09-24] MEDS: CHOLECALCIFEROL (VITD3) 2,000 UNIT CAP/TAB PO SCH (09:53)
[2020-09-24] MEDS: FLUCONAZOLE 200MG/100ML 100 ML IV SCH (11:00)
[2020-09-24 16:00] VITALS: BP 106/66
[2020-09-24] MEDS ORDERED: SODIUM CHLORIDE IV NR ×12 (20:00)
[2020-09-24] MEDS ORDERED: SODIUM PHOSPHATES IV NR ×12 (20:00)
[2020-09-24] MEDS ORDERED: [UNRECOGNIZED DRUG - OTHER] IV NR ×12 (20:00)
[2020-09-24] MEDS ORDERED: SODIUM ACETATE IV NR ×12 (20:00)
== END 2020-09-24 20:28 | DRG 137 ==
LOC: TELE-WESTW 00:04
PROVIDERS: ADMIT Specialist; ATTEND Internal Medicine
PROC: XW033E5 Introduction of Remdesivir Anti-infective into Peripheral Vein, Percutaneous Approach, New Technology Group 5 (ICD-10-PCS; 2020-09-01)
PROC: XW13325 Transfusion of Convalescent Plasma (Nonautologous) into Peripheral Vein, Percutaneous Approach, New Technology Group 5 (ICD-10-PCS; 2020-09-06)
PROC: 5A09557 Assistance with Respiratory Ventilation, Greater than 96 Consecutive Hours, Continuous Positive Airway Pressure (ICD-10-PCS; 2020-09-08)
PROC: 05H933Z Insertion of Infusion Device into Right Brachial Vein, Percutaneous Approach (ICD-10-PCS; 2020-09-10)
PROC: B54MZZA Ultrasonography of Right Upper Extremity Veins, Guidance (ICD-10-PCS; 2020-09-10)
PROC: 3E0336Z Introduction of Nutritional Substance into Peripheral Vein, Percutaneous Approach (ICD-10-PCS; principal; 2020-09-11)
PROC: 05HF33Z Insertion of Infusion Device into Left Cephalic Vein, Percutaneous Approach (ICD-10-PCS; 2020-09-16)
PROC: B54NZZA Ultrasonography of Left Upper Extremity Veins, Guidance (ICD-10-PCS; 2020-09-16)
DX: U07.1 COVID-19 (principal); J12.82 Pneumonia due to coronavirus disease 2019; J96.01 Acute respiratory failure with hypoxia; G93.41 Metabolic encephalopathy; J90 Pleural effusion, not elsewhere classified; I25.10 Atherosclerotic heart disease of native coronary artery without angina pectoris; K21.9 Gastro-esophageal reflux disease without esophagitis; J98.11 Atelectasis; F41.9 Anxiety disorder, unspecified; F17.200 Nicotine dependence, unspecified, uncomplicated; Z53.9 Procedure and treatment not carried out, unspecified reason; H57.04 Mydriasis; Z66 Do not resuscitate; F32.9 Major depressive disorder, single episode, unspecified; B96.5 Pseudomonas (aeruginosa) (mallei) (pseudomallei) as the cause of diseases classified elsewhere; N30.90 Cystitis, unspecified without hematuria; I10 Essential (primary) hypertension; I21.4 Non-ST elevation (NSTEMI) myocardial infarction; Z79.82 Long term (current) use of aspirin; Z79.899 Other long term (current) drug therapy; Z82.3 Family history of stroke; Z86.73 Personal history of transient ischemic attack (TIA), and cerebral infarction without residual deficits; Z82.49 Family history of ischemic heart disease and other diseases of the circulatory system; Z87.442 Personal history of urinary calculi; Z95.0 Presence of cardiac pacemaker; E11.649 Type 2 diabetes mellitus with hypoglycemia without coma
CPT/HCPCS: 36415; 36600; 70450; 71045; 76705; 80053; 80061; 81001; 82040; 82607; 82728; 82746; 82805; 82962; 83036; 83605; 83615; 83735; 83880; 84100; 84436; 84443; 84478; 84480; 84484; 85025; 85379; 85610; 85730; 86141; 86850; 86900; 86901; 87081; 87086; 87088; 87186; 87426; 92610; 93306; 93970; 94660; 97110; G0378; J0610; J0696; J1450; J1815; J1885; J2185; J3480; J7131; P9047; Q9967